=== PATIENT | female | born 1960 | race African-American/Black ===

== ENCOUNTER 2024-09-17 14:32 | Inpatient (IN) | payer BC, OTHER ==
[2024-09-17 15:42] LABS: ABSOLUTE IMMATURE GRANULOCYTES 0.01 x10^3/uL (0.0-0.031); BASOPHILS # 0.02 x10^3/uL (0.01-0.08); EOSINOPHIL % 1.3 % (0.7-5.8); EOSINOPHILS # 0.09 x10^3/uL (0.04-0.36); MCHC 28.0 g/dl (32.2-35.5); MEAN CELL VOLUME 74.4 fl (79.4-94.8); MEAN PLT VOLUME 10.5 fl (9.4-12.3); MONOCYTE # 0.47 x10^3/uL (0.24-0.86); MONOCYTE % 7.0 % (4.7-12.5); RDW 18.6 % (12.4-16.4)
[2024-09-17 15:50] LABS: INR 1.02 (0.83-1.09); PROTHROMBIN TIME (PATIENT) 11.2 SEC (9.7-13.0)
[2024-09-17 15:52] LABS: ACTIVATED PTT 34.2 SECONDS (25.2-36.5)
[2024-09-17 15:56] LABS: GLUCOSE,RANDOM 213.0 mg/dL (74-106); TOT PROT 7.4 g/dl (6.4-8.2)
[2024-09-17 15:57] LABS: CO2 25.0 mmol/L (21-32)
[2024-09-17 15:59] LABS: ALK PHOS 87.0 U/L (40-150)
[2024-09-17 16:02] LABS: CREATININE 0.81 mg/dL (0.55-1.3); SGOT/AST 29.0 U/L (5-34); SGPT/ALT 15.0 U/L (0-55)
[2024-09-17 16:24] LABS: HIV INTERPRETATION NEGATIVE (NEGATIVE)
[2024-09-17] MEDS ORDERED: ONDANSETRON 4 MG/2 ML VIAL IVPUSH PRN (19:47)
[2024-09-17] MEDS ORDERED: morphine CARPU-JECT 2 MG/1 ML DISP.SYRIN IVPUSH PRN (19:47)
[2024-09-17] MEDS: SODIUM CHLORIDE 1,000 ML IV SCH (21:16)
[2024-09-17] MEDS: PANTOPRAZOLE 40 MG TABLET PO SCH (21:16)
[2024-09-17] MEDS: IRON SUCROSE INJECTION 200 MG in SODIUM CHLORIDE 100 ML IVPB ONE (21:16)
[2024-09-17 23:21] LABS: HCV DIAGNOSTIC IN-HOUSE W/RFLX NON-REACTIVE (NONREACTIVE)
[2024-09-18 03:00] LABS: ABSOLUTE IMMATURE GRANULOCYTES 0.02 x10^3/uL (0.0-0.031); BASOPHILS # 0.02 x10^3/uL (0.01-0.08); EOSINOPHIL % 1.8 % (0.7-5.8); EOSINOPHILS # 0.12 x10^3/uL (0.04-0.36); MCHC 27.9 g/dl (32.2-35.5); MEAN CELL VOLUME 74.9 fl (79.4-94.8); MEAN PLT VOLUME 10.8 fl (9.4-12.3); MONOCYTE # 0.52 x10^3/uL (0.24-0.86); MONOCYTE % 7.8 % (4.7-12.5); RDW 19.0 % (12.4-16.4)
[2024-09-18] MEDS: INSULIN ASPART SLIDING SCALE (NOVOLOG) 1 VIAL SQ SCH (06:13)
[2024-09-18] MEDS: amLODIPine BESYLATE 5 MG TABLET (FP) PO SCH (07:43)
[2024-09-18 08:08] LABS: ABSOLUTE IMMATURE GRANULOCYTES 0.02 x10^3/uL (0.0-0.031); BASOPHILS # 0.02 x10^3/uL (0.01-0.08); EOSINOPHIL % 1.6 % (0.7-5.8); EOSINOPHILS # 0.10 x10^3/uL (0.04-0.36); MCHC 27.0 g/dl (32.2-35.5); MEAN CELL VOLUME 76.1 fl (79.4-94.8); MEAN PLT VOLUME 10.9 fl (9.4-12.3); MONOCYTE # 0.42 x10^3/uL (0.24-0.86); MONOCYTE % 6.5 % (4.7-12.5); RDW 18.7 % (12.4-16.4)
[2024-09-18 08:14] LABS: INR 1.08 (0.83-1.09); PROTHROMBIN TIME (PATIENT) 11.8 SEC (9.7-13.0)
[2024-09-18] MEDS ORDERED: PANTOPRAZOLE 40 MG TABLET PO SCH (10:00)
[2024-09-18] MEDS ORDERED: amLODIPine BESYLATE 5 MG TABLET (FP) PO SCH (10:00)
[2024-09-18] MEDS: INSULIN GLARGINE (LANTUS) 100 UNITS/ML UNITS SQ SCH (21:42)
[2024-09-18 22:01] VITALS: RESP 18
[2024-09-18] MEDS: IRON SUCROSE INJECTION 200 MG in SODIUM CHLORIDE 100 ML IVPB ONE (22:05)
[2024-09-18] MEDS: ACETAMINOPHEN 1000 MG/100 ML BAG IVPB PRN (23:47)
[2024-09-19 06:34] VITALS: TEMP 98.1
[2024-09-19 08:21] LABS: MCHC 28.3 g/dl (32.2-35.5); MEAN CELL VOLUME 74.9 fl (79.4-94.8); MEAN PLT VOLUME 10.8 fl (9.4-12.3); RDW 18.6 % (12.4-16.4)
[2024-09-19 08:57] LABS: GLUCOSE,RANDOM 154.0 mg/dL (74-106); TOT PROT 7.2 g/dl (6.4-8.2)
[2024-09-19 08:58] LABS: CO2 27.0 mmol/L (21-32)
[2024-09-19 09:00] LABS: ALK PHOS 81.0 U/L (40-150)
[2024-09-19 09:03] LABS: CREATININE 0.73 mg/dL (0.55-1.3); SGOT/AST 30.0 U/L (5-34); SGPT/ALT 12.0 U/L (0-55)
[2024-09-19] MEDS: amLODIPine BESYLATE 10 MG TABLET (FP) PO SCH (09:04)
[2024-09-19 11:47] VITALS: BP 148/89; PULSE 83
[2024-09-19 14:39] VITALS: BMI 22.3
== END 2024-09-19 15:30 | disposition home or self-care (01) | DRG 392 ==
LOC: JER 14:32 → INTOOBSV 19:11 → UNDOADMOB 19:11 → JERBED 19:11 → J6S 19:53 → OBSVTOIN 09-18 11:08
PROVIDERS: ADMIT Hospitalist; ATTEND Internal Medicine
PROC: 0DB68ZX Excision of Stomach, Via Natural or Artificial Opening Endoscopic, Diagnostic (ICD-10-PCS; principal; 2024-09-18 13:30)
DX: K31.89 Other diseases of stomach and duodenum (principal); I10 Essential (primary) hypertension; E11.9 Type 2 diabetes mellitus without complications; D50.9 Iron deficiency anemia, unspecified; R10.13 Epigastric pain
CPT/HCPCS: 36415; 36430; 74178-TC; 80053; 82150; 82962; 83690; 85025; 85027; 85610; 85730; 86803; 86850; 86900; 86901; 86922; 87389; 88305-TC; 88341-TC; 88342-TC; 93005; 93010; 99285-25; G0378; J1756; P9058; Q9967

== ENCOUNTER 2024-10-28 09:03 | Day surgery (SDC) | payer BC ==
[~2024-10-28 09:03] MED LIST: FOSAPREPITANT DIMEGLUMINE 150 MG in SODIUM CHLORIDE 145 ML IVPB ONE; LEUCOVORIN INJECTION - 656 MG in DEXTROSE 5%-WATER - 250 ML IVPB ONE; NIVOLUMAB 240 MG in SODIUM CHLORIDE 100 ML IVPB ONE; PALONOSETRON HCL 0.25 MG/5 ML VIAL IVPUSH ONE; SODIUM CHLORIDE 250 ML IV ONE
[2024-10-28] MEDS ORDERED: DEXAMETHASONE SODIUM PHOSPHATE 10 MG in SODIUM CHLORIDE 50 ML IVPB ONE (09:45)
[2024-10-28 10:04] LABS: ABSOLUTE IMMATURE GRANULOCYTES 0.02 x10^3/uL (0.0-0.031); BASOPHILS # 0.03 x10^3/uL (0.01-0.08); EOSINOPHIL % 1.8 % (0.7-5.8); EOSINOPHILS # 0.12 x10^3/uL (0.04-0.36); MCHC 28.9 g/dl (32.2-35.5); MEAN CELL VOLUME 79.5 fl (79.4-94.8); MEAN PLT VOLUME 10.5 fl (9.4-12.3); MONOCYTE # 0.35 x10^3/uL (0.24-0.86); MONOCYTE % 5.2 % (4.7-12.5); RDW 18.5 % (12.4-16.4)
[2024-10-28 10:36] LABS: EPI CELLS >36 /uL (0-25.1); HYALINE CASTS 1 /uL (0-3.1); URINE APPEARANCE CLEAR; URINE BACTERIA 836 /uL (0-1359); URINE BILIRUBIN NEGATIVE (NEGATIVE); URINE COLOR YELLOW; URINE GLUCOSE (UA) NEGATIVE (NEGATIVE); URINE KETONE NEGATIVE (NEGATIVE); URINE LEUK ESTERASE 2+ (NEGATIVE); URINE NITRITE NEGATIVE (NEGATIVE); URINE PROTEIN NEGATIVE (NEGATIVE); URINE RBC 12 /uL (0-23.9); URINE UROBILINOGEN 1.0 mg/dL (0.2-1.0); URINE WBC 55 /uL (0-25.8)
[2024-10-28 10:48] LABS: GLUCOSE,RANDOM 201.0 mg/dL (74-106); TOT PROT 6.8 g/dl (6.4-8.2)
[2024-10-28 10:49] LABS: CO2 25.0 mmol/L (21-32)
[2024-10-28 10:53] LABS: CREATININE 0.6 mg/dL (0.55-1.3)
[2024-10-28 10:54] LABS: SGOT/AST 29 U/L (5-34); SGPT/ALT 35 U/L (0-55)
[2024-10-28 10:55] LABS: ALK PHOS 141 U/L (40-150)
[2024-10-28] MEDS ORDERED: FLUOROURACIL 500 MG/10 ML VIAL IVPUSH ONE (11:00)
[2024-10-28] MEDS ORDERED: FLUOROURACIL 3,925 MG in SODIUM CHLORIDE 13.5 ML CP ONE (11:30)
[2024-10-28 11:32] VITALS: BP 148/85; PULSE 95; RESP 16; TEMP 98.3
[2024-10-28 11:38] LABS: N-TERMINAL BNP 47.4 pg/mL (0-299.9)
== END 2024-10-28 11:30 | disposition home or self-care (01) ==
LOC: JONCCHEMO 09:03 → J7W 09:04 → JONCCHEMO 11:30
PROVIDERS: ATTEND Internal Medicine Hematology & Oncology
DX: Z53.8 Procedure and treatment not carried out for other reasons (principal)
CPT/HCPCS: 36415; 80048; 80076; 81003; 82150; 82533; 82550; 83690; 83880; 84439; 84443; 84484; 85025

== ENCOUNTER 2024-11-04 09:13 | Day surgery (SDC) | payer BC, OTHER ==
[2024-11-04 09:53] LABS: ABSOLUTE IMMATURE GRANULOCYTES 0.02 x10^3/uL (0.0-0.031); BASOPHILS # 0.02 x10^3/uL (0.01-0.08); EOSINOPHIL % 3.6 % (0.7-5.8); EOSINOPHILS # 0.21 x10^3/uL (0.04-0.36); MCHC 29.6 g/dl (32.2-35.5); MEAN CELL VOLUME 79.9 fl (79.4-94.8); MEAN PLT VOLUME 10.3 fl (9.4-12.3); MONOCYTE # 0.27 x10^3/uL (0.24-0.86); MONOCYTE % 4.6 % (4.7-12.5); RDW 18.0 % (12.4-16.4)
[2024-11-04 10:12] LABS: GLUCOSE,RANDOM 156 mg/dL (74-106); TOT PROT 6.6 g/dl (6.4-8.2)
[2024-11-04 10:13] LABS: CO2 24 mmol/L (21-32)
[2024-11-04 10:18] LABS: CREATININE 0.73 mg/dL (0.55-1.3); SGOT/AST 25 U/L (5-34); SGPT/ALT 16 U/L (0-55)
[2024-11-04 10:35] LABS: ALK PHOS 114 U/L (40-150)
[2024-11-04] MEDS: SODIUM CHLORIDE 250 ML IV ONE (11:11)
[2024-11-04] MEDS: FOSAPREPITANT DIMEGLUMINE 150 MG in SODIUM CHLORIDE 145 ML IVPB ONE (11:12)
[2024-11-04 11:34] VITALS: TEMP 98.9
[2024-11-04] MEDS ORDERED: PORTA CATH FLUSH 10 ML IVPUSH PRN (11:37)
[2024-11-04] MEDS: PALONOSETRON HCL 0.25 MG/5 ML VIAL IVPUSH ONE (11:43)
[2024-11-04] MEDS: DEXAMETHASONE SODIUM PHOSPHATE 10 MG in SODIUM CHLORIDE 50 ML IVPB ONE (11:43)
[2024-11-04] MEDS: NIVOLUMAB 240 MG in SODIUM CHLORIDE 100 ML IVPB ONE (12:29)
[2024-11-04] MEDS: LEUCOVORIN INJECTION - 656 MG in DEXTROSE 5%-WATER - 250 ML IVPB ONE (13:11)
[2024-11-04] MEDS: FLUOROURACIL 500 MG/10 ML VIAL IVPUSH ONE (15:24)
[2024-11-04] MEDS: FLUOROURACIL 3,925 MG in SODIUM CHLORIDE 13.5 ML CP ONE (15:28)
[2024-11-04 15:36] VITALS: BP 154/81; PULSE 82; RESP 18
[2024-11-04 15:46] LABS: URINE APPEARANCE CLOUDY; URINE BILIRUBIN NEGATIVE (NEGATIVE); URINE COLOR YELLOW; URINE GLUCOSE (UA) NEGATIVE (NEGATIVE)
[2024-11-04 15:47] LABS: URINE KETONE NEGATIVE (NEGATIVE); URINE LEUK ESTERASE 1+ (NEGATIVE); URINE NITRITE NEGATIVE (NEGATIVE); URINE PROTEIN NEGATIVE (NEGATIVE); URINE UROBILINOGEN 0.2 mg/dL (0.2-1.0)
== END 2024-11-04 15:40 | disposition home or self-care (01) ==
LOC: JONCCHEMO 09:13
PROVIDERS: ATTEND Internal Medicine Hematology & Oncology
PROC: 3E04305 Introduction of Other Antineoplastic into Central Vein, Percutaneous Approach (ICD-10-PCS; principal; 2024-11-04)
PROC: 3E043GC Introduction of Other Therapeutic Substance into Central Vein, Percutaneous Approach (ICD-10-PCS; 2024-11-04)
DX: Z51.11 Encounter for antineoplastic chemotherapy (principal); C16.9 Malignant neoplasm of stomach, unspecified; C78.89 Secondary malignant neoplasm of other digestive organs
CPT/HCPCS: 36415; 80048; 80076; 81003; 82150; 82533; 82550; 83690; 83880; 84439; 84443; 84484; 85025; 96375; 96413; 96415; G0498; J1453; J9190; J9263; J9299